=== PATIENT | female | born 1990 | race Caucasian/White ===

== ENCOUNTER 2020-06-18 13:47 | Emergency (ER) | payer MEDICAID ==
[~2020-06-18] VITALS: Ht 160 cm; Wt 62.0 kg
[2020-06-18] MEDS ORDERED: ACETAMINOPHEN 325MG TABLET PO STA (14:10)
[2020-06-18 14:44] LABS: BASOPHILS % 0.3 % (0.0-2.0); EOSINOPHILS % 0.7 % (0.0-5.0); HEMATOCRIT. 37.7 % (36.0-48.0); HEMOGLOBIN. 12.9 g/dL (12.0-16.0); LYMPHOCYTES % 21.8 % (20.0-50.0); MEAN CORPUSCULAR HEMOGLOBIN 30.7 pg (28.0-32.0); MEAN CORPUSCULAR VOLUME 89.8 fL (81.0-99.0); MONOCYTES % 5.8 % (2.0-8.0); NEUTROPHILS % 71.4 % (40.0-76.0); PLATELET 130 x1000/uL (130-400); RED CELL DISTRIBUTION WIDTH 13.1 % (11.6-14.6)
[2020-06-18 14:51] LABS: CHLORIDE 108 mEq/L (98-107)
[2020-06-18 15:01] LABS: CLARITY URINE CLOUDY (CLEAR); COLOR URINE RED (YELLOW); KETONES URINE NEGATIVE (NEGATIVE); LEUKOCYTE ESTERASE URINE 1+ (NEGATIVE); NITRITE URINE NEGATIVE (NEGATIVE); OCCULT BLOOD URINE 3+ (NEGATIVE); PH URINE 5.5 (4.5-8.0); PROTEIN URINE 1+ (NEGATIVE); SPECIFIC GRAVITY URINE 1.025 (1.005-1.030)
[2020-06-18 15:02] LABS: B-HCG QUANTITATIVE 314 mIU/mL (<3)
[2020-06-18 16:35] VITALS: BP 128/78
== END 2020-06-18 18:00 | disposition home or self-care (01) ==
LOC: ER 14:18
DX: O20.9 Hemorrhage in early pregnancy, unspecified (principal); O26.891 Other specified pregnancy related conditions, first trimester; R10.2 Pelvic and perineal pain; Z3A.12 12 weeks gestation of pregnancy
CPT/HCPCS: 36415; 76801; 80053; 81003; 84702; 85025; 86850; 86900; 99284

== ENCOUNTER 2020-06-23 00:49 | Emergency (ER) | payer MEDICAID ==
[~2020-06-23] VITALS: Ht 160 cm; Wt 59.0 kg
[2020-06-23] MEDS ORDERED: SODIUM CHLORIDE 0.9% 1,000 ML IV ONE ×2 (01:30→02:45)
[2020-06-23 01:41] LABS: BASOPHILS % 0.1 % (0.0-2.0); EOSINOPHILS % 0.8 % (0.0-5.0); HEMATOCRIT. 32.8 % (36.0-48.0); HEMOGLOBIN. 11.4 g/dL (12.0-16.0); LYMPHOCYTES % 17.2 % (20.0-50.0); MEAN CORPUSCULAR HEMOGLOBIN 30.7 pg (28.0-32.0); MEAN CORPUSCULAR VOLUME 88.7 fL (81.0-99.0); MEAN PLATELET VOLUME 9.6 fl (7.4-10.4); NEUTROPHILS % 76.9 % (40.0-76.0); PLATELET 124 x1000/uL (130-400); RED CELL DISTRIBUTION WIDTH 12.8 % (11.6-14.6)
[2020-06-23 02:04] LABS: CHLORIDE 112 mEq/L (98-107)
[2020-06-23 02:15] LABS: B-HCG QUANTITATIVE 120 mIU/mL (<3)
[2020-06-23] MEDS ORDERED: ONDANSETRON HCL 4MG/2ML INJ IV STA (02:33)
[2020-06-23] MEDS ORDERED: MORPHINE SULFATE 4 MG/ML CPJ (NOT FOR IM USE) IV STA (02:33)
[2020-06-23] MEDS ORDERED: DEXT 5%/LR + PITOCIN 20UNITS/L 1,000 ML IV ONE (02:45)
[2020-06-23] MEDS ORDERED: MISOPROSTOL 200MCG TABLET PO ONE (04:30)
[2020-06-23] MEDS ORDERED: METH PO (06:29)
[2020-06-23] MEDS ORDERED: IBUP-2028 MT (06:30)
[2020-06-23 07:00] VITALS: BP 90/53
== END 2020-06-23 08:13 | disposition home or self-care (01) ==
LOC: ER 00:49 → CANBEDREQ 13:18
DX: O46.92 Antepartum hemorrhage, unspecified, second trimester (principal); O03.4 Incomplete spontaneous abortion without complication; Z3A.20 20 weeks gestation of pregnancy
CPT/HCPCS: 36415; 76801; 76817; 80053; 84702; 85025; 86850; 86900; 86901; 88305; 96361; 96365; 96375; 99284; J2270; J2405; J2590; J7030